=== PATIENT | male | born 1945 | race Caucasian/White ===

== ENCOUNTER 2018-11-19 19:14 | Inpatient (IN) | payer OTHER, MEDICARE ==
[~2018-11-19 19:14] MED LIST: INSULIN SLIDING SCALE (NOVOLOG) 1 VIAL SQ SCH
[2018-11-19 19:24] VITALS: BMI 32.3
--- NOTE | 2018-11-19 19:39 | PDOC ---
History of Present Illness - History of Present Illness Initial Comments: 11/19/18 19:53 The patient is a 72 year old male, with a significant past medical history of hypertension and NIDDM, who presents to the emergency department with slightly elevated blood sugar, intermittent abdominal pain, dizziness and shortness of breath. The patient states he woke up and his sugar was 133 which is elevated from his usual 100 in the mornings. He states his sugar was about 250 prior to ED arrival. He states he had an episode of abdominal discomfort earlier which has since resolved after about 3 bowel movements today. As per the son at bedside, the patient complaints of some shortness of breath earlier which the patient denies having now. The patient also reports intermittent dizziness with associated unsteady gait for about 6 months which he has seen a neurologist for twice and has yet to follow back since last visit. The patient denies chest pain, palpitations, and headache. The patient denies fever, chills, nausea, vomit, diarrhea and constipation. The patient denies dysuria, frequency, urgency and hematuria. PAST MEDICAL HISTORY: no significant history PAST SURGICAL HISTORY: no significant history FAMILY HISTORY: no pertinent history SOCIAL HISTORY: Pt lives with family and is employed. MEDICATIONS: reviewed ALLERGIES: As per nursing notes ROS General: No fevers or chills, no weakness, no weight loss HEENT: No change in vision. No sore throat,. No ear pain CardioVascular: No chest pain. Respiratory: (+) SOB (now resolved). No cough, or wheezing. Gastrointestinal: (+) abdominal discomfort (now resolved). no nausea, vomiting, diarrhea or constipation, No rectal bleeding Genitourinary: No dysuria, hematuria, or frequency Musculoskeletal: No joint or muscle pain or swelling Neurologic:(+) dizziness. No headache, vertigo, or loss of consciousness Psychiatric: nor depression Skin: No rashes or easy bruising Endocrine: (+) elevated blood sugars. no increased thirst or abnormal weight change Allergic: no skin or latex allergy All other systems reviewed and normal Physical Exam: General: Well-nourished well-developed individual, no acute distress HEENT: Throat: Normal, tonsils normal, no erythema or exudate Neck: Supple, no meningeal signs, no lymphadenopathy Eyes::Pupils equal reactive and round, extraocular motion intact Chest: Nontender to palpation Cardiac: (+) 2/6 systolic murmur. S1-S2 normal, regular rate and rhythm, no rubs or gallops Respiratory: Lungs clear to auscultation bilateral Abdomen: Soft, nondistended, normal bowel sounds, nontender to palpation diffusely Extremities: Warm, dry, no cyanosis, clubbing, or edema Skin: No rashes Neuro: Alert and oriented x3, nonfocal exam, grossly intact, normal gait Psych: Normal mood and affect Rectal: (+) dark stool in vault. no blood. no masses. no tenderness <Aaliyah Barclay - Last Filed: 11/19/18 20:32> - General History Source: Patient Exam Limitations: No Limitations - History of Present Illness Initial Comments: A portion of this note was documented by scribe services under my direction. I have reviewed the details of the note, within reason, and agree with the documentation with the following case summary and management plan written by me. Patient treated in the ED. Nursing notes are reviewed and incorporated into the medical decision-making. Vital signs reviewed. Assessment and plan: This is a 72-year-old male who comes in complaining of dizziness and some dyspnea. Patient also complained that he thought his sugar was high. Workup was initiated including CBC, comp, EKG, chest x-ray. Patient's EKG showed normal sinus rhythm with a right bundle branch block at a rate of [address]-T wave changes Patient's chest x-ray showed no acute pathology Patient's labs were unremarkable exception of a sugar of 351 and a hemoglobin of 8.8 Given patient's hemoglobin and sugar patient will be admitted to a observation bed for possible transfusion and the further evaluation. A head CT was not done as patient saw a neurologist within the last 6 months and had a head CT Discussed admission with hospitalist who requested the patient not be transfused at this time 11/19/18 20:53 11/19/18 20:55 <Donna Velez I - Last Filed: 11/19/18 20:56> - General Chief Complaint: Lightheaded Stated Complaint: dizziness Time Seen by Provider: 11/19/18 19:20 Past History <Aaliyah Barclay - Last Filed: 11/19/18 20:32> - Past Medical History Anemia: No Asthma: No Cancer: No Cardiac Disorders: Yes (AORTIC STENOSIS) CVA: No COPD: No CHF: No Dementia: No Diabetes: Yes GI Disorders: No Disorders: No HTN: Yes Hypercholesterolemia: Yes Liver Disease: No Seizures: No Thyroid Disease: No - Surgical History Abdominal Surgery: No Appendectomy: No Cardiac Surgery: No Cholecystectomy: No Lung Surgery: No Neurologic Surgery: No Orthopedic Surgery: Yes (LEFT & RIGHT KNEE ARTHROSCOPY,LEFT SHOULDER SX) - Suicide/Smoking/Psychosocial Hx Smoking Status: No Smoking History: Unknown if ever smoked Have you smoked in the past 12 months: No Number of Cigarettes Smoked Daily: 0 Information on smoking cessation initiated: No Hx Alcohol Use: Yes (RARE) Drug/Substance Use Hx: No Substance Use Type: None Hx Substance Use Treatment: No <Donna Velez I - Last Filed: 11/19/18 20:56> - Past Medical History Allergies/Adverse Reactions: Allergies Allergy/AdvReac Type Severity Reaction Status Date / Time No Known Allergies Allergy Verified 11/03/11 09:36 Home Medications: Ambulatory Orders Metformin HCl [Glucophage] 1,000 mg PO BID 11/03/11 Metoprolol Succinate [Toprol XL] 50 mg PO DAILY 11/03/11 Amlodipine Besylate 10 mg PO DAILY 10/09/15 Aspirin Coated [Ecotrin -] 325 mg PO DAILY 10/09/15 Atorvastatin Ca [Lipitor -] 20 mg PO DAILY 10/09/15 Glimepiride 2 mg PO DAILY 10/09/15 Losartan Potassium 50 mg PO DAILY 10/09/15 Oxycodone HCl 5 mg PO Q4H PRN #60 tablet 10/10/15 Triamterene/Hydrochlorothiazid [Triamterene-Hctz 37.5-25 mg Cp] 1 each PO DAILY 11/19/18 *Physical Exam - Vital Signs Last Vital Signs Temp Pulse Resp BP Pulse Ox 97.3 F L 90 16 102/56 L 96 11/19/18 19:19 11/19/18 19:19 11/19/18 19:19 11/19/18 19:19 11/19/18 19:19 <Aaliyah Barclay - Last Filed: 11/19/18 20:32> - Vital Signs Last Vital Signs Temp Pulse Resp BP Pulse Ox 97.3 F L 90 16 102/56 L 96 11/19/18 19:19 11/19/18 19:19 11/19/18 19:19 11/19/18 19:19 11/19/18 19:19 <Donna Velez I - Last Filed: 11/19/18 20:56> ED Treatment Course - LABORATORY CBC & Chemistry Diagram: 11/19/18 19:47 11/19/18 19:47 <Aaliyah Barclay - Last Filed: 11/19/18 20:32> - LABORATORY CBC & Chemistry Diagram: 11/19/18 19:47 11/19/18 19:47 <Donna Velez I - Last Filed: 11/19/18 20:56> *DC/Admit/Observation/Transfer - Attestations Scribe Attestion: 11/19/18 19:54 Documentation prepared by Aaliyah Barclay, acting as director global medical affairs for Donna Velez MD <Aaliyah Barclay - Last Filed: 11/19/18 20:32> - Discharge Dispostion Decision to Admit order: Yes <Donna Velez I - Last Filed: 11/19/18 20:56> Diagnosis at time of Disposition: Dizziness Anemia Qualifiers: Anemia type: unspecified type Qualified Code(s): D64.9 - Anemia, unspecified Dyspnea Qualifiers: Dyspnea type: unspecified Qualified Code(s): R06.00 - Dyspnea, unspecified - Discharge Dispostion Condition at time of disposition: Stable - Referrals Referrals: Sebastian Aguilar MD [Primary Care Provider] - - Patient Instructions - Post Discharge Activity
[2018-11-19 20:12] LABS: BASO % 0.3 % (0-2.0); EOS % 1.4 % (0-4.5); MEAN PLT VOLUME 9.3 fl (7.5-11.1); RBC 2.96 M/mm3 (4.00-5.60)
[2018-11-19 20:16] LABS: HEMOGLOBIN 8.8 GM/dl (11.7-16.9); LYMPH % 9.3 % (8-40); MCH 29.8 pg (25.7-33.7); MCHC 32.6 g/dl (32.0-35.9); MEAN CELL VOLUME 91.5 fl (80-96); MONO % 6.8 % (3.8-10.2); NEUT % 82.2 % (42.8-82.8); PLATELET COUNT 116 K/MM3 (134-434); RDW 13.6 % (11.9-15.9); WHITE BLOOD COUNT 10.4 K/mm3 (4.0-10.8)
[2018-11-19 20:21] LABS: ALBUMIN 2.9 g/dl (3.4-5.0); ALK PHOS 56 U/L (45-117); ANION GAP 10 MMOL/L (8-16); BILIRUBIN,TOTAL 1.3 mg/dl (0.2-1); BLOOD UREA NITROGEN 58 mg/dl (7-18); CALCIUM 8.9 mg/dl (8.5-10); CHLORIDE 103 mmol/L (98-107); CO2 24 mmol/L (21-32); CREATININE 1.2 mg/dl (0.55-1.3); POTASSIUM 5.5 mmol/L (3.5-5.1); SGOT/AST 41 U/L (15-37); SGPT/ALT 47 U/L (13-61); SODIUM 137 mmol/L (136-145); TOT PROT 5.5 g/dl (6.4-8.2)
[2018-11-19 20:23] LABS: GLUCOSE,RANDOM 351 mg/dl (74-106)
[2018-11-19 21:26] LABS: ACTIVATED PTT 21.8 SECONDS (25.2-36.5)
[2018-11-19 21:39] LABS: INR 1.47 (0.82-1.09); PROTHROMBIN TIME (PATIENT) 16.3 SEC (10.2-13.0)
--- NOTE | 2018-11-19 23:46 | HP ---
CHIEF COMPLAINT: dizziness PCP: Jeff HISTORY OF PRESENT ILLNESS: This is a 72 year old male with a past medical history of HTN, HLD, NIDDM who presented to the ED with abdominal discomfort and dizziness today as well as slightly elevated blood sugar. He reports that his abdominal pain has been intermittent and at home was relieved by BMs. He reports a total of 3 Dark BMs today which were progressively more loose. He reports normal brown BM yesterday. His son reported to the ED staff that his father was SOB earlier but patient denies any SOB. Pt reports that he has been having intermittent dizzines for the past 6 month and is being followed by a neurologist out of [place]. On exam pt reports feeling much better after vomiting and having BM. Pt ambulated to and from the bathroom just prior to my exam with no dizziness; however, he vomited approx 300cc dark brown/black liquid with clots as well as passed dark brown/black liquid BM. ER course was notable for: (1) Hgb 8.8 (2) K 5.5 (3) Glucose 351 Recent Travel: pt denies PAST MEDICAL HISTORY: HTN, HLD, heart murmur ?MV, NIDDM PAST SURGICAL HISTORY: left patella repair, right knee arthroscopy, left shoulder arthroscopy, left hip replacement Social History: Smoking: pt denies Alcohol: pt denies Drugs: pt denies Family History: mother age 83, dementia, h/o diverticulitis father age 65, pancreatic CA brother with leukemia sister with heart monitor for "fluttering" Allergies No Known Allergies Allergy (Verified 11/03/11 09:36) HOME MEDICATIONS: 3 Medication Instructions Recorded Metformin HCl [Glucophage] 1,000 mg PO BID 11/03/11 Metoprolol Succinate [Toprol XL] 50 mg PO DAILY 11/03/11 Amlodipine Besylate 10 mg PO DAILY 10/09/15 Aspirin Coated [Ecotrin -] 325 mg PO DAILY 10/09/15 Atorvastatin Ca [Lipitor -] 20 mg PO DAILY 10/09/15 Glimepiride 2 mg PO DAILY 10/09/15 Losartan Potassium 50 mg PO DAILY 10/09/15 Oxycodone HCl 5 mg PO Q4H PRN #60 tablet 10/10/15 Triamterene/Hydrochlorothiazid 1 each PO DAILY 11/19/18 [Triamterene-Hctz 37.5-25 mg Cp] REVIEW OF SYSTEMS CONSTITUTIONAL: Absent: fever, chills, diaphoresis, generalized weakness, malaise, loss of appetite, weight change HEENT: Absent: rhinorrhea, nasal congestion, throat pain, throat swelling, difficulty swallowing, mouth swelling, ear pain, eye pain, visual changes CARDIOVASCULAR: Absent: chest pain, syncope, palpitations, irregular heart rate, lightheadedness , peripheral edema RESPIRATORY: Present: shortness of breath Absent: cough, dyspnea with exertion, orthopnea, wheezing, stridor, hemoptysis GASTROINTESTINAL: Absent: abdominal distension, nausea, vomiting, diarrhea, constipation, melena, hematochezia GENITOURINARY: Present: abdominal pain Absent: dysuria, frequency, urgency, hesitancy, hematuria, flank pain, genital pain MUSCULOSKELETAL: Absent: myalgia, arthralgia, joint swelling, back pain, neck pain SKIN: Absent: rash, itching, pallor HEMATOLOGIC/IMMUNOLOGIC: Absent: easy bleeding, easy bruising, lymphadenopathy, frequent infections ENDOCRINE: Absent: unexplained weight gain, unexplained weight loss, heat intolerance, cold intolerance NEUROLOGIC: Present: dizziness Absent: headache, focal weakness or paresthesias, unsteady gait, seizure, mental status changes, bladder or bowel incontinence PSYCHIATRIC: Absent: anxiety, depression, suicidal or homicidal ideation, hallucinations. PHYSICAL EXAMINATION Vital Signs - 24 hr 3 11/19/18 11/19/18 11/19/18 19:19 21:30 21:45 Temperature 97.3 F L 97.8 F Pulse Rate 90 86 Pulse Rate [ 86 Radial] Respiratory 16 18 17 Rate Blood Pressure 102/56 L 113/48 L Blood Pressure 104/66 [Arm] O2 Sat by Pulse 96 95 98 Oximetry (%) GENERAL: Awake, alert, and fully oriented, in no acute distress. HEAD: Normal with no signs of trauma. EYES: Pupils equal, round and reactive to light, extraocular movements intact, sclera anicteric, conjunctiva clear. No lid lag. EARS, NOSE, THROAT: Ears normal, nares patent, oropharynx clear without exudates. Moist mucous membranes. NECK: Normal range of motion, supple without lymphadenopathy, JVD, or masses. LUNGS: Breath sounds equal, clear to auscultation bilaterally. No wheezes, and no crackles. No accessory muscle use. HEART: Regular rate and rhythm, normal S1 and S2 without rub or gallop. + 2/6 PATRICIA 2nd ICS LSB ABDOMEN: Soft, nontender, not distended, normoactive bowel sounds, no guarding, no rebound, no masses. No hepatomegaly or splenomegaly. MUSCULOSKELETAL: Normal range of motion at all joints. No bony deformities or tenderness. No CVA tenderness. UPPER EXTREMITIES: 2+ pulses, warm, well-perfused. No cyanosis. No clubbing. No peripheral edema. LOWER EXTREMITIES: 2+ pulses, warm, well-perfused. No calf tenderness. No peripheral edema. NEUROLOGICAL: Cranial nerves II-XII intact. Normal speech. Normal gait. PSYCHIATRIC: Cooperative. Good eye contact. Appropriate mood and affect. SKIN: Warm, dry, normal turgor, no rashes or lesions noted, normal capillary refill. Laboratory Results - last 24 hr 3 11/19/18 11/19/18 11/19/18 19:47 19:47 19:47 WBC 10.4 RBC 2.96 L Hgb 8.8 L Hct 27.0 L D MCV 91.5 MCH 29.8 MCHC 32.6 RDW 13.6 Plt Count 116 L D MPV 9.3 Absolute Neuts (auto) 8.6 Neutrophils % 82.2 Lymphocytes % 9.3 Monocytes % 6.8 Eosinophils % 1.4 Basophils % 0.3 PT with INR INR PTT (Actin FS) Sodium 137 Potassium 5.5 H Chloride 103 Carbon Dioxide 24 Anion Gap 10 BUN 58 H Creatinine 1.2 Creat Clearance w eGFR 59.35 Random Glucose 351 H* Calcium 8.9 Total Bilirubin 1.3 H AST 41 H ALT 47 Alkaline Phosphatase 56 Creatine Kinase Creatine Kinase Index CK-MB (CK-2) Troponin I 0.05 Total Protein 5.5 L Albumin 2.9 L Stool Occult Blood Blood Type Antibody Screen Crossmatch 3 11/19/18 11/19/18 11/19/18 19:47 20:32 20:34 WBC RBC Hgb Hct MCV MCH MCHC RDW Plt Count MPV Absolute Neuts (auto) Neutrophils % Lymphocytes % Monocytes % Eosinophils % Basophils % PT with INR Cancelled INR Cancelled PTT (Actin FS) Cancelled Sodium Potassium Chloride Carbon Dioxide Anion Gap BUN Creatinine Creat Clearance w eGFR Random Glucose Calcium Total Bilirubin AST ALT Alkaline Phosphatase Creatine Kinase 208 Creatine Kinase Index 2.1 CK-MB (CK-2) 4.5 H Troponin I Total Protein Albumin Stool Occult Blood Positive Blood Type Antibody Screen Crossmatch 3 11/19/18 11/19/18 11/19/18 20:36 20:58 20:58 WBC RBC Hgb Hct MCV MCH MCHC RDW Plt Count MPV Absolute Neuts (auto) Neutrophils % Lymphocytes % Monocytes % Eosinophils % Basophils % PT with INR 16.3 H INR 1.47 H D PTT (Actin FS) 21.8 L Sodium Potassium Chloride Carbon Dioxide Anion Gap BUN Creatinine Creat Clearance w eGFR Random Glucose Calcium Total Bilirubin AST ALT Alkaline Phosphatase Creatine Kinase Creatine Kinase Index CK-MB (CK-2) Troponin I Total Protein Albumin Stool Occult Blood Blood Type Cancelled O POSITIVE Antibody Screen Cancelled Negative Crossmatch See Detail ECG normal sinus rhythm RBBB vnt rate 77, QTC [address]/T wave changes ASSESSMENT/PLAN: 72yM with HTN, HLD, NIDDM presented to the ED with abdominal pain, dizziness and hyperglycemia now admitted for acute GI bleed. GI bleed-likely upper - transfer to [facility] as [facility] as bed available as there is no OR here on weekends for endoscopy - monitor on tele - transfuse 1uPRBC - CBC q6h - NPO except ice chips HTN - Hold toprol for now given SBP 100-110, start metoprolol 5mg q6h if persistently elevated HLD - resume lipitor when able to tolerate PO NIDDM - Hold home po meds - BGM and novolog sliding scale q6h while NPO DVT PPX - heparin deferred due to acute bleeding FEN - hold IVF for now as patient will be receiving blood, consider starting when blood complete - monitor BMP and replete, as indicated. K repeated, now 4.8 - NPO except ice chips Dispo: Pt currently requires inpatient management of his emergent condition. Visit type - Emergency Visit Emergency Visit: Yes ED Registration Date: 11/19/18 Care time: The patient presented to the Emergency Department on the above date and was hospitalized for further evaluation of their emergent condition. - New Patient This patient is new to me today: Yes Date on this admission: 11/19/18 - Critical Care Critical Care patient: No
[2018-11-19 23:51] LABS: BASO % 0.3 % (0-2.0); EOS % 0.7 % (0-4.5); HEMATOCRIT 24.7 % (35.4-49); HEMOGLOBIN 8.1 GM/dl (11.7-16.9); LYMPH % 11.8 % (8-40); MCH 30.1 pg (25.7-33.7); MCHC 32.8 g/dl (32.0-35.9); MEAN CELL VOLUME 91.7 fl (80-96); MEAN PLT VOLUME 8.9 fl (7.5-11.1); MONO % 6.5 % (3.8-10.2); NEUT % 80.7 % (42.8-82.8); PLATELET COUNT 100 K/MM3 (134-434); RBC 2.69 M/mm3 (4.00-5.60); RDW 13.9 % (11.9-15.9); WHITE BLOOD COUNT 8.9 K/mm3 (4.0-10.8)
[2018-11-19 23:58] LABS: ANION GAP 10 MMOL/L (8-16); BLOOD UREA NITROGEN 63 mg/dl (7-18); CALCIUM 8.9 mg/dl (8.5-10); CHLORIDE 104 mmol/L (98-107); CO2 24 mmol/L (21-32); CREATININE 1.2 mg/dl (0.55-1.3); POTASSIUM 4.8 mmol/L (3.5-5.1); SODIUM 138 mmol/L (136-145)
[2018-11-20] LABS: GLUCOSE,RANDOM 308 mg/dl (74-106)
[2018-11-20] MEDS ORDERED: INSULIN (NOVOLOG) ASPART 100 UNITS/ML 10ML VIAL SQ ONE
[2018-11-20] MEDS ORDERED: PANTOPRAZOLE SODIUM 40 MG VIAL IVPUSH ONE (00:38)
--- NOTE | 2018-11-20 05:46 | CONSULT ---
Consult Consult Specialty:: ICU Referred by:: Jamaal Reason for Consultation:: GI bleed - History of Present Illness Chief Complaint: abdominal pain, melena, coffee-ground emesis History of Present Illness: 72 yr old man with NIDDM, HTN, presented with diffuse abdominal pain associated with 5 episodes of dark stools between 12pm and entering the [facility] and had 2 episodes of coffee ground emesis in the ED. each BM filled the toilet bowl, initially BMs were hard but each subsequent was more liquid-like. He did not have breakfast and was belching with abdominal tightness, he then had a lunch consisting of meatball, spinach, and pasta containing soup after which the abdominal tightness increased and he urgently needed to go to the bathroom, abdominal pain improved with defecation. has been experiencing dizziness and unsteady gait for the past 8 months, was evaluated by nuerology and was recommended to get physical therapy but has not gone yet. In the past week denies fevers, new foods, new medications, changes in weight, dysuria, bruising, hematochezia, melena, headache. denies hx of UGI or LGI bleed. denies palpitations, shortness of breath, chest pain, nausea, changes in vision, current abdominal pain. 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 denies AK, had an echo in Aug 2018 and was told one of his valves was "closing." Had a colonoscopy years ago but was unable to recall the results or exact date. Surgx: left knee patellar repair and left shoulder surgery 2000, left hip replacement, right knee arthroplasty, "subcutaneous mass removal from under left clavicle" about 4 yrs ago, umbilical hernia repair 2015 PCP: Dr. Godwin @ [facility]: works as an staff accountant, lives with , denies ever smoking, ETOH or illicit drug use Fmhx: Mother with hx of diverticulitis, father diagnosed with pancreatic cancer age 65, brother with "a form of leukemia" - History Source History Provided By: Patient - Alcohol/Substance Use Hx Alcohol Use: Yes (RARE) - Smoking History Smoking history: Unknown if ever smoked Have you smoked in the past 12 months: No Aproximately how many cigarettes per day: 0 Home Medications - Allergies Allergies/Adverse Reactions: Allergies Allergy/AdvReac Type Severity Reaction Status Date / Time No Known Allergies Allergy Verified 11/03/11 09:36 - Home Medications Home Medications: Ambulatory Orders Metformin HCl [Glucophage] 1,000 mg PO BID 11/03/11 Metoprolol Succinate [Toprol XL] 50 mg PO DAILY 11/03/11 Amlodipine Besylate 10 mg PO DAILY 10/09/15 Aspirin Coated [Ecotrin -] 325 mg PO DAILY 10/09/15 Atorvastatin Ca [Lipitor -] 20 mg PO DAILY 10/09/15 Glimepiride 2 mg PO DAILY 10/09/15 Losartan Potassium 50 mg PO DAILY 10/09/15 Oxycodone HCl 5 mg PO Q4H PRN #60 tablet 10/10/15 Triamterene/Hydrochlorothiazid [Triamterene-Hctz 37.5-25 mg Cp] 1 each PO DAILY 11/19/18 Family Disease History - Family Disease History Family Disease History: CA: Father (pancreatic), Brother ("form of leukemia"), Other: Mother (diverticulitis) Review of Systems - Review of Systems Constitutional: denies: Fever, Lethargy, Loss of Appetite, Night Sweats, Unintentional Wgt. Loss Eyes: denies: Double Vision, Recent Change in Vision HENT: denies: Difficult Swallowing, Epistaxis, Nasal Congestion, Throat Pain, Ringing in Ears Cardiovascular: denies: Chest Pain, Edema, Palpitations, Shortness of Breath Respiratory: reports: Cough (had persistant dry cough from july to Aug that has since resolved) Gastrointestinal: reports: Abdominal Pain, Melena, Vomiting. denies: Rectal Bleeding Genitourinary: denies: Dysuria, Flank Pain Breasts: denies: Skin Changes Musculoskeletal: denies: Back Pain, Joint Swelling, Muscle Weakness Integumentary: denies: Bruising, Erythema, Rash Neurological: reports: Unsteady Gait. denies: Change in Speech, Confusion, Headache Endocrine: denies: Intolerance to Cold, Intolerance to Heat, Unexplained Weight Loss Hematology/Lymphatic: denies: Easily Bruised, Excessive Bleeding Physical Exam Vital Signs: Vital Signs Temperature 98.7 F 11/20/18 04:36 Pulse Rate 96 H 11/20/18 05:43 Respiratory Rate 21 H 11/20/18 05:43 Blood Pressure 143/72 11/20/18 05:43 O2 Sat by Pulse Oximetry (%) 94 L 11/20/18 04:36 Constitutional: Yes: No Distress, Calm Eyes: Yes: Conjunctiva Clear (conjunctival pallor), EOM Intact, PERRL HENT: Yes: Atraumatic, Normocephalic. No: Pharyngeal Erythema, Rhinnorhea Neck: Yes: Supple, Trachea Midline. No: Lymphadenopathy, Thyromegaly Cardiovascular: Yes: Regular Rate and Rhythm, Murmur, S1, S2. No: Bruit Respiratory: Yes: Regular, CTA Bilaterally. No: Cough, Wheezes Gastrointestinal: Yes: Normal Bowel Sounds, Soft, Distention (tympanic). No: Rectal Bleeding ...Rectal Exam: Yes: Guaiac Positive, Sphincter Tone Normal, Other (skin tag in 12o'clock position). No: Erythema, Inflammation Renal/: No: Bladder Distention, CVA Tenderness - Left, CVA Tenderness - Right Breast(s): No: Mass Musculoskeletal: No: Back Pain Extremities: No: Calf Tenderness, Erythema Edema: No Peripheral Pulses WNL: Yes Neurological: Yes: Alert, Oriented, Cran Nerves II-XII Intact, Other (facial symmetry, clear speech) ...Motor Strength: WNL Labs: CBC, BMP 11/19/18 23:00 11/19/18 23:00 Assessment/Plan 72 yr old with HTN, NIDDM presents with melena and coffee ground emesis likely due to GI bleed from aspirin use. GI - NPO for bowel rest and possible endoscopy/colonoscopy in the AM - Dr. Bui consulted for GI evaluation - received 1 unit of Prbc's in [place] - Protonix 40mg IV BID - trend CBC - IVF NS @100c/hr Hematology - normocytic anemia - d/t acute blood loss - thrombocytopenia - appears to be chronic, present in chart from 2016 and 2011 , continue to trend for acute changes CV - maintaining BP - transfuse as needed to maintain Hgb>7.0 - hold home oral ani-HTN medications Pulm - maintaining airway, pt has capacity and wants to be full code Endo - hx of NIDDM - hold home oral medications - BGMs/NISS q6hr while NPO FEN - Ns @100cc/hr - replete as needed, initially hyperkalemia that resolved in repeat BMP - NPO Neuro - hx of unsteady gait, unclear etiology, was evaluated by outpatient neurology - may need PT evaluation once stable Prophylaxis - medical AC contraindicated in setting of suspected GI bleed, SCD's for VTE - on protonix for GI Dispo: ICU level of care for GI bleed called son and left message on home number listed in chart as requested by patient. pt signed HCP form indicating Pedro Mccracken is to be his HCP with as alternate.
[2018-11-20] MEDS ORDERED: SODIUM CHLORIDE 1,000 ML IV SCH (06:00)
[2018-11-20 08:03] LABS: HEMATOCRIT 25.5 % (35.4-49); HEMOGLOBIN 8.5 GM/dL (11.7-16.9); MCH 30.7 pg (25.7-33.7); MCHC 33.4 g/dl (32.0-35.9); MEAN CELL VOLUME 91.8 fl (80-96); MEAN PLT VOLUME 8.5 fl (7.5-11.1); PLATELET COUNT 82 K/MM3 (134-434); RBC 2.78 M/mm3 (4.00-5.60); RDW 14.5 % (11.9-15.9)
[2018-11-20] MEDS ORDERED: PHYTONADIONE 10 MG/1 ML AMP SQ ONE (08:05)
[2018-11-20 08:11] LABS: MAGNESIUM 1.7 mg/dL (1.8-2.4); PHOSPHOROUS 3.8 mg/dL (2.5-4.9)
[2018-11-20 09:03] LABS: BLOOD UREA NITROGEN 68 mg/dL (7-18); CREATININE 1.3 mg/dL (0.55-1.3); GLUCOSE,RANDOM 165 mg/dL (74-106)
[2018-11-20 09:04] LABS: CALCIUM 8.8 mg/dL (8.5-10.1); CO2 20 mmol/L (21-32)
--- NOTE | 2018-11-20 09:04 | CON.GI ---
Consult Consult Specialty:: GI Referred by:: Hospitalist Reason for Consultation:: Coffee ground emesis - History of Present Illness Chief Complaint: Coffee ground emesis and melena History of Present Illness: 72M seen at [facility] for evaluation of dizziness. Was in bathroom at home sitting on toilet when he vomited dark material and had a black bowel movement. he had a total of two of these episodes and described 1 similar episode at [place]. noted to be anemic and transfused 1 U PRBC. Given protonix and transferred to [facility]. On ASA 325mg daily for years secondary to possible "old stroke". labs revealed INR 1.45 and platelets of 100, now 80. States being told of this in the past. States having had a liver biopsy multiple years ago and being told of fatty liver. Denies alcohol use. Has never had an upper endoscopy or colonoscopy. Noted increased LOPEZ yesterday while climbing stairs. Describes having a valvular heart probelm and his manager marketing works at [employer]. He cannot recall what valve is problematic. He has never had an upper endoscopy. Believes that he had a colonoscopy some years ago. There is no family history of colorectal cancer. No vomiting / melena as of yet this morning. His PMD is Dr. Aguilar. - History Source History Provided By: Patient, Medical Record Limitations to Obtaining History: No Limitations - Past Medical History Cardio/Vascular: Yes: HTN, Other (Valvular heart disease) Hepatobiliary: Yes: Other (Fatty Liver (states having had biopsy multiple years prior confirming this)) Heme/Onc: Yes: Thrombocytopenia (states having seen a child psychologist some years ago at [facility]) Endocrine: Yes: Diabetes Mellitus (DM II) - Past Surgical History Past Surgical History: Yes: Hernia Repair (Umbilical) Additional Surgical History: Left patella tendon repair, left shoulder surgery - Alcohol/Substance Use Hx Alcohol Use: Yes (RARE) - Smoking History Smoking history: Unknown if ever smoked Have you smoked in the past 12 months: No Aproximately how many cigarettes per day: 0 - Social History Usual Living Arrangement: With Spouse ADL: Independent Occupation: Heating And Ventilating Worker Place of : [facility] History of Recent Travel: No Home Medications - Allergies Allergies/Adverse Reactions: Allergies Allergy/AdvReac Type Severity Reaction Status Date / Time No Known Allergies Allergy Verified 11/03/11 09:36 - Home Medications Home Medications: Ambulatory Orders Metformin HCl [Glucophage] 1,000 mg PO BID 11/03/11 Metoprolol Succinate [Toprol XL] 50 mg PO DAILY 11/03/11 Amlodipine Besylate 10 mg PO DAILY 10/09/15 Aspirin Coated [Ecotrin -] 325 mg PO DAILY 10/09/15 Atorvastatin Ca [Lipitor -] 20 mg PO DAILY 10/09/15 Glimepiride 2 mg PO DAILY 10/09/15 Losartan Potassium 50 mg PO DAILY 10/09/15 Oxycodone HCl 5 mg PO Q4H PRN #60 tablet 10/10/15 Triamterene/Hydrochlorothiazid [Triamterene-Hctz 37.5-25 mg Cp] 1 each PO DAILY 11/19/18 Family Disease History - Family Disease History Family Disease History: CA: Father (: 65: pancreatic ca), Other: Mother (: 83: Alzheimer's dementia s/p fall), Brother (1 with leukemia), Sister (1 with heart problem), Son (2 healthy), Daughter (1 healthy) Other Family History: No family history of colorectal cancer Physical Exam-GI Vital Signs: Vital Signs Temperature 98.5 F 11/20/18 06:23 Pulse Rate 96 H 11/20/18 06:23 Respiratory Rate 22 H 11/20/18 06:23 Blood Pressure 127/64 11/20/18 06:23 O2 Sat by Pulse Oximetry (%) 94 L 11/20/18 06:20 Constitutional: Yes: Calm Eyes: No: Sclera Icterus Cardiovascular: Yes: Tachycardia, Murmur (2/6 systolic murmur at the RSB) Respiratory: Yes: CTA Bilaterally Gastrointestinal Inspection: Yes: Scars (periumbilical scar). No: Distention ...Auscultate: Yes: Normoactive Bowel Sounds ...Palpate: Yes: Soft. No: Hepatomegaly, Splenomegaly, Tenderness ...Percussion: No: Tympanitic ...Rectal Exam: Yes: Other (No external lesions, no masses, no blood/melena) Edema: No (No LE edema) Neurological: Yes: Alert Labs: CBC, BMP 11/20/18 07:25 INR, PTT INR 1.47 (0.82-1.09) H D 11/19/18 20:58 Problem List - Problems (1) Upper GI bleed Assessment/Plan: For further evaluation, discussed upper endoscopy to exclude intralum,inal pathology such as NSAID induced PUD, bleeding blood vessel, gastritis. Given thrombocytopenia, hypoalbuminemia, LFT abnormality, mild coagulopathy and known history of fatty liver disease, sequelae of portal hypertension such as varices/ portal gastropathy need to remain in the differential as well. i explained this to Mr. Mccracken and his family who were present at bedside. We discussed potential risks of the procedure like but not limited to bleeding, perforation requiring surgery to repair, infection sedation medication effects all of which could be potentially life threatening. Discussed the possible need for variceal banding as well. He has agreed to the procedure. For now: NPO except meds IV hydration' AXR ordered to evaluate for ileus in setting of hyperglycemia, abdominal US ordered to evaluate for splenomegaly Protonix given. continue as drip @ 8mg/hr Ordered Vitamin K 10mg SC x 1 and repeat coags ordered In setting of chronic thrombocytopenia, the use of daily full dose asa will need to be reevaluated Hematology consult placed EKG ordered and cardioplogy consult placed. h/o valvular heart disease. Need more information regarding valvular heart disease and cardiology consult placed Code(s): K92.2 - GASTROINTESTINAL HEMORRHAGE, UNSPECIFIED
[2018-11-20 09:26] LABS: ANION GAP 15 MMOL/L (8-16); CHLORIDE 108 mmol/L (98-107); POTASSIUM 4.4 mmol/L (3.5-5.1); SODIUM 143 mmol/L (136-145)
[2018-11-20] MEDS ORDERED: MUPIROCIN 2% TOPICAL OINTMENT FOR DECOLONIZATION NS SCH (10:00)
[2018-11-20] MEDS ORDERED: PANTOPRAZOLE SODIUM 40 MG VIAL IVPUSH SCH ×3 (10:00→18:00)
[2018-11-20] MEDS: PANTOPRAZOLE SODIUM 80 MG in SODIUM CHLORIDE 100 ML IVPB SCH ×2 (10:00→17:52)
[2018-11-20] MEDS ORDERED: PHYTONADIONE 10 MG/1 ML AMP ONE (10:00)
[2018-11-20] MEDS ORDERED: MAGNESIUM SULF 50% (8.12 MEQ/2 ML-1 GM VIAL) IVPB ONE (10:02)
--- NOTE | 2018-11-20 10:28 | PN ---
Physical Exam: SUBJECTIVE: Patient seen and examined in the icu. denies any abdominal pain, nausea or vomiting OBJECTIVE: symphony coverage for Dr. Aguilar Vital Signs Period Temp Pulse Resp BP Sys/Harden Pulse Ox Last 24 Hr 97.3 F-98.7 F 86-100 16-22 102-143/48-72 94-100 GENERAL: The patient is awake, alert, and fully oriented, in no acute distress. slightly pallorous HEAD: Normal with no signs of trauma. EYES: PERRL, extraocular movements intact, sclera anicteric, conjunctiva clear. No ptosis. ENT: Ears normal, nares patent, oropharynx clear without exudates, moist mucous membranes. NECK: Trachea midline, full range of motion, supple. LUNGS: Breath sounds equal, clear to auscultation bilaterally, no wheezes, no crackles, no accessory muscle use. HEART: Regular rate and rhythm ABDOMEN: Soft, nontender, nondistended, normoactive bowel sounds, no guarding, no rebound, no hepatosplenomegaly, no masses. EXTREMITIES: no edema. NEUROLOGICAL: Normal speech, gait not observed. PSYCH: Normal mood, normal affect. SKIN: Warm, dry, normal turgor, no rashes or lesions noted Laboratory Results - last 24 hr 11/19/18 11/19/18 11/19/18 19:47 19:47 19:47 WBC 10.4 RBC 2.96 L Hgb 8.8 L Hct 27.0 L D MCV 91.5 MCH 29.8 MCHC 32.6 RDW 13.6 Plt Count 116 L D MPV 9.3 Absolute Neuts (auto) 8.6 Neutrophils % 82.2 Lymphocytes % 9.3 Monocytes % 6.8 Eosinophils % 1.4 Basophils % 0.3 PT with INR INR PTT (Actin FS) Sodium 137 Potassium 5.5 H Chloride 103 Carbon Dioxide 24 Anion Gap 10 BUN 58 H Creatinine 1.2 Creat Clearance w eGFR 59.35 Random Glucose 351 H* Calcium 8.9 Phosphorus Magnesium Total Bilirubin 1.3 H AST 41 H ALT 47 Alkaline Phosphatase 56 Creatine Kinase Creatine Kinase Index CK-MB (CK-2) Troponin I 0.05 Total Protein 5.5 L Albumin 2.9 L Stool Occult Blood Blood Type Antibody Screen Crossmatch 04/05/19 04/05/19 04/05/19 19:47 20:32 20:34 WBC RBC Hgb Hct MCV MCH MCHC RDW Plt Count MPV Absolute Neuts (auto) Neutrophils % Lymphocytes % Monocytes % Eosinophils % Basophils % PT with INR Cancelled INR Cancelled PTT (Actin FS) Cancelled Sodium Potassium Chloride Carbon Dioxide Anion Gap BUN Creatinine Creat Clearance w eGFR Random Glucose Calcium Phosphorus Magnesium Total Bilirubin AST ALT Alkaline Phosphatase Creatine Kinase 208 Creatine Kinase Index 2.1 CK-MB (CK-2) 4.5 H Troponin I Total Protein Albumin Stool Occult Blood Positive Blood Type Antibody Screen Crossmatch 11/19/18 11/19/18 11/19/18 20:36 20:58 20:58 WBC RBC Hgb Hct MCV MCH MCHC RDW Plt Count MPV Absolute Neuts (auto) Neutrophils % Lymphocytes % Monocytes % Eosinophils % Basophils % PT with INR 16.3 H INR 1.47 H D PTT (Actin FS) 21.8 L Sodium Potassium Chloride Carbon Dioxide Anion Gap BUN Creatinine Creat Clearance w eGFR Random Glucose Calcium Phosphorus Magnesium Total Bilirubin AST ALT Alkaline Phosphatase Creatine Kinase Creatine Kinase Index CK-MB (CK-2) Troponin I Total Protein Albumin Stool Occult Blood Blood Type Cancelled O POSITIVE Antibody Screen Cancelled Negative Crossmatch See Detail See Detail 11/19/18 11/19/18 11/20/18 23:00 23:00 07:25 WBC 8.9 9.0 RBC 2.69 L 2.78 L Hgb 8.1 L 8.5 L Hct 24.7 L 25.5 L D MCV 91.7 91.8 MCH 30.1 30.7 MCHC 32.8 33.4 RDW 13.9 14.5 Plt Count 100 L 82 L D MPV 8.9 8.5 Absolute Neuts (auto) 7.2 Neutrophils % 80.7 Lymphocytes % 11.8 D Monocytes % 6.5 Eosinophils % 0.7 Basophils % 0.3 PT with INR INR PTT (Actin FS) Sodium 138 Potassium 4.8 Chloride 104 Carbon Dioxide 24 Anion Gap 10 BUN 63 H Creatinine 1.2 Creat Clearance w eGFR 59.35 Random Glucose 308 H* Calcium 8.9 Phosphorus Magnesium Total Bilirubin AST ALT Alkaline Phosphatase Creatine Kinase Creatine Kinase Index CK-MB (CK-2) Troponin I Total Protein Albumin Stool Occult Blood Blood Type Antibody Screen Crossmatch 11/20/18 11/20/18 07:25 07:25 WBC RBC Hgb Hct MCV MCH MCHC RDW Plt Count MPV Absolute Neuts (auto) Neutrophils % Lymphocytes % Monocytes % Eosinophils % Basophils % PT with INR INR PTT (Actin FS) Sodium 143 Potassium 4.4 Chloride 108 H Carbon Dioxide 20 L Anion Gap 15 BUN 68 H Creatinine 1.3 Creat Clearance w eGFR 54.11 Random Glucose 165 H Calcium 8.8 Phosphorus 3.8 Magnesium 1.7 L Total Bilirubin AST ALT Alkaline Phosphatase Creatine Kinase 114 Creatine Kinase Index CK-MB (CK-2) 3.39 Troponin I 0.06 H Cancelled Total Protein Albumin Stool Occult Blood Blood Type Antibody Screen Crossmatch Active Medications Generic Name Dose Route Start Last Admin Trade Name Freq PRN Reason Stop Dose Admin Chlorhexidine Gluconate 1 applic 11/20/18 22:00 Hibiclens For Decolonization - TP HS SHAN Sodium Chloride 1,000 mls @ 100 mls/hr 11/20/18 06:00 11/20/18 07:00 Normal Saline - IV 100 mls/hr ASDIR SHAN Administration Pantoprazole Sodium 80 mg/ 100 mls @ 10 mls/hr 11/20/18 07:30 11/20/18 10:00 Sodium Chloride IVPB 10 mls/hr Q10H SHAN Administration 8 MG/HR Insulin Aspart 1 vial 11/20/18 06:00 Novolog Vial Sliding Scale - SQ Q6H SHAN Protocol Mupirocin 1 applic 11/20/18 10:00 Bactroban Ointment (For Decolonization) - NS 11/25/18 09:59 BID SHAN ASSESSMENT/PLAN: Patient is a 72 year old male with a significant past medical history of hypertension, hyperlipidemia, diabetes. He presents to the ED on 11/19/18 with complaints of abdominal pain and feeling dizzy. He reported 3 episodes of loose dark stool today and one episode of approximately 300cc dark brown/black liquid emesis with clots and then with a dark brown/black liquid bowel movement. Problem list: hypertension hyperlipidemia diabetes Dizziness GI bleed Blood loss anemia GI: GI bleed/blood loss anemia Given 1 unit of prbc. hmg/hct low stable and unchanged from this morning on protonix drip trend cbc IV hydration and NPO For possible endoscopy today Heme: Acute blood anemia, in the setting of gi bleed. cbc being monitored, for endoscopy procedure today thrombocytpenia @ 82, platelets 90-100 on previous admissions On ASA 324mg therapy for many years per patient per his neurologist. Pulm: Toleraring room air, stable saturations Cardiology: Hypertension. controlled. Hyperlipidemia. on statin therapy-resume when can tolerate po hx of valvular heart disease: cardiology consulted, echo ordered. Endocrine: Diabetes. bgms q6 while NPO fen npo NS @ 100cc/hr monitor electrolytes prophy SCDS no a/c due to gi bleed Visit type - Emergency Visit Emergency Visit: Yes ED Registration Date: 11/19/18 Care time: The patient presented to the Emergency Department on the above date and was hospitalized for further evaluation of their emergent condition. - New Patient This patient is new to me today: No - Critical Care Critical Care patient: Yes Total Critical Care Time (in minutes): 30 Critical Care Statement: The care of this patient involved high complexity decision making to prevent further life threatening deterioration of the patient 's condition and/or to evaluate & treat vital organ system(s) failure or risk of failure.
[2018-11-20 11:06] LABS: INR 1.27 (0.83-1.09)
--- NOTE | 2018-11-20 11:27 | EKG ---
Test Reason : Blood Pressure : / mmHG Vent. Rate : 100 BPM Atrial Rate : 100 BPM P-R Int : 150 ms QRS Dur : 126 ms QT Int : 406 ms P-R-T Axes : 053 -18 035 degrees QTc Int : 523 ms NORMAL SINUS RHYTHM RIGHT BUNDLE BRANCH BLOCK ABNORMAL ECG WHEN COMPARED WITH ECG OF 19-NOV-2018 19:39, ST NOW DEPRESSED IN ANTERIOR LEADS QT HAS LENGTHENED Confirmed by BROOKE BOURNE, FABIO ([id number]) on 11/20/2018 11:26:51 AM Referred By: Bk ASCENCIO Confirmed By:FABIO COX MD
--- NOTE | 2018-11-20 11:38 | EKG ---
Test Reason : Blood Pressure : / mmHG Vent. Rate : 077 BPM Atrial Rate : 077 BPM P-R Int : 132 ms QRS Dur : 124 ms QT Int : 408 ms P-R-T Axes : 045 -05 017 degrees QTc Int : 461 ms NORMAL SINUS RHYTHM RIGHT BUNDLE BRANCH BLOCK ABNORMAL ECG NO PREVIOUS ECGS AVAILABLE Confirmed by BROOKE BOURNE, FABIO ([id number]) on 11/20/2018 11:38:38 AM Referred By: MD ZENG Confirmed By:FABIO COX MD
[2018-11-20] MEDS ORDERED: PT OWN MED DRAWER 7, Y5N ONE (12:05)
[2018-11-20 13:23] LABS: HEMATOCRIT 24.5 % (35.4-49); HEMOGLOBIN 8.4 GM/dL (11.7-16.9); MCH 31.3 pg (25.7-33.7); MCHC 34.2 g/dl (32.0-35.9); MEAN CELL VOLUME 91.5 fl (80-96); RBC 2.68 M/mm3 (4.00-5.60); WHITE BLOOD COUNT 9.2 K/mm3 (4.0-10.0)
[2018-11-20 13:24] LABS: MEAN PLT VOLUME 8.9 fl (7.5-11.1); PLATELET COUNT 81 K/MM3 (134-434); RDW 14.5 % (11.9-15.9)
[2018-11-20] MEDS: INSULIN SLIDING SCALE (NOVOLOG) 1 VIAL SQ SCH ×3 (13:42→18:15)
[2018-11-20 14:42] LABS: HEMATOCRIT 24.6 % (35.4-49); HEMOGLOBIN 8.2 GM/dL (11.7-16.9); MCH 30.7 pg (25.7-33.7); MCHC 33.6 g/dl (32.0-35.9); MEAN CELL VOLUME 91.4 fl (80-96); MEAN PLT VOLUME 8.7 fl (7.5-11.1); PLATELET COUNT 86 K/MM3 (134-434); RBC 2.69 M/mm3 (4.00-5.60); RDW 14.5 % (11.9-15.9); WHITE BLOOD COUNT 9.1 K/mm3 (4.0-10.0)
[2018-11-20] MEDS ORDERED: OCTREOTIDE ACETATE 50 MCG/1 ML - 1 ML VIAL IVPUSH ONE (16:52)
[2018-11-20] MEDS ORDERED: NADOLOL 20 MG TABLET (FP) PO SCH (17:00)
[2018-11-20] MEDS ORDERED: OCTREOTIDE ACETATE 1,200 MCG in DEXTROSE 5%-WATER - 488 ML IVPB SCH (17:00)
[2018-11-20] MEDS ORDERED: CEFTRIAXONE 1 GM in DEXTROSE 5%-WATER - 50 ML IVPB SCH (17:15)
[2018-11-20] MEDS ORDERED: cefTRIAXone SODIUM 1 GM VIAL ONE (17:21)
[2018-11-20] MEDS ORDERED: DEXTROSE 5%-WATER - 50 ML IVPB ONE (17:21)
--- NOTE | 2018-11-20 17:22 | PN ---
Progress Note (short form) - Note Progress Note: EGD complete. Report placed in procedural section of physical chart and will be scanned into [facility] Problem List - Problems (1) Upper GI bleed Code(s): K92.2 - GASTROINTESTINAL HEMORRHAGE, UNSPECIFIED
[2018-11-20 18:33] VITALS: BP 125/60; PULSE 84; TEMP 99
--- NOTE | 2018-11-20 19:06 | CON.CARD ---
Consult Consult Specialty:: cardiology Reason for Consultation:: dizziness; hematochezia - History of Present Illness History of Present Illness: This is a 72 year old male with a past medical history of HTN, HLD, NIDDM who presented to the ED with abdominal discomfort and dizziness today as well as slightly elevated blood sugar. He reports that his abdominal pain has been intermittent and at home was relieved by BMs. He reports a total of 3 Dark BMs today which were progressively more loose. He reports normal brown BM yesterday. His son reported to the ED staff that his father was SOB earlier but patient denies any SOB. Pt reports that he has been having intermittent dizzines for the past 6 month and is being followed by a neurologist out of [place]. On exam pt reports feeling much better after vomiting and having BM. Pt ambulated to and from the bathroom just prior to my exam with no dizziness; however, he vomited approx 300cc dark brown/black liquid with clots as well as passed dark brown/black liquid BM. - History Source History Provided By: Patient, Family Member, Medical Record Limitations to Obtaining History: Other (pt's provides history; pt is tired ) - Past Medical History Cardio/Vascular: Yes: HTN, Other (Valvular heart disease) Hepatobiliary: Yes: Other (Fatty Liver (states having had biopsy multiple years prior confirming this)) Endocrine: Yes: Diabetes Mellitus (DM II) - Past Surgical History Past Surgical History: Yes: Hernia Repair (Umbilical) Additional Surgical History: Left patella tendon repair, left shoulder surgery - Alcohol/Substance Use Hx Alcohol Use: Yes (RARE) - Smoking History Smoking history: Unknown if ever smoked Have you smoked in the past 12 months: No Aproximately how many cigarettes per day: 0 - Social History Usual Living Arrangement: With Spouse ADL: Independent Occupation: [employer] History of Recent Travel: No Home Medications - Allergies Allergies/Adverse Reactions: Allergies Allergy/AdvReac Type Severity Reaction Status Date / Time No Known Allergies Allergy Verified 11/03/11 09:36 - Home Medications Home Medications: Ambulatory Orders Metformin HCl [Glucophage] 1,000 mg PO BID 11/03/11 Metoprolol Succinate [Toprol XL] 50 mg PO DAILY 11/03/11 Amlodipine Besylate 10 mg PO DAILY 10/09/15 Aspirin Coated [Ecotrin -] 325 mg PO DAILY 10/09/15 Atorvastatin Ca [Lipitor -] 20 mg PO DAILY 10/09/15 Glimepiride 2 mg PO DAILY 10/09/15 Losartan Potassium 50 mg PO DAILY 10/09/15 Oxycodone HCl 5 mg PO Q4H PRN #60 tablet 10/10/15 Triamterene/Hydrochlorothiazid [Triamterene-Hctz 37.5-25 mg Cp] 1 each PO DAILY 11/19/18 Family Disease History - Family Disease History Family Disease History: CA: Father (: 65: pancreatic ca), Other: Mother (: 83: Alzheimer's dementia s/p fall), Brother (1 with leukemia), Sister (1 with heart problem), Son (2 healthy), Daughter (1 healthy) Other Family History: No family history of colorectal cancer Vital Signs: Vital Signs Temperature 99 F 11/20/18 18:00 Pulse Rate 84 11/20/18 18:00 Respiratory Rate 21 H 11/20/18 18:00 Blood Pressure 125/60 11/20/18 18:00 O2 Sat by Pulse Oximetry (%) 94 L 11/20/18 10:00 - Other Data Labs, Other Data: CBC, BMP 11/20/18 14:30 11/20/18 07:25 INR, PTT INR 1.27 (0.83-1.09) H 11/20/18 10:29 Troponin, BNP 11/19/18 11/20/18 11/20/18 19:47 07:25 07:25 Troponin I 0.05 0.06 H Cancelled Troponin, BNP 11/19/18 11/20/18 11/20/18 19:47 07:25 07:25 Troponin I 0.05 0.06 H Cancelled Problem List - Problems (1) Gastric varices Assessment/Plan: On Nadolol. For transer to [facility] for further evaluation. Code(s): I86.4 - GASTRIC VARICES (2) Anemia Code(s): D64.9 - ANEMIA, UNSPECIFIED Qualifiers: Anemia type: unspecified type Qualified Code(s): D64.9 - Anemia, unspecified (3) Dizziness Code(s): R42 - DIZZINESS AND GIDDINESS (4) Aortic stenosis Assessment/Plan: f/u ECHO for LVEF, valve status, chamber sizes. Code(s): I35.0 - NONRHEUMATIC AORTIC (VALVE) STENOSIS
--- NOTE | 2018-11-20 20:06 | CONSULT ---
Consult Consult Specialty:: Hematology Referred by:: Dr. So Reason for Consultation:: Thrombocytopenia - History of Present Illness Chief Complaint: Abdominal pain History of Present Illness: 72M with NIDDM, HTN, and reported hx of fatty liver disease presented with diffuse abdominal pain , dark stools and coffee grounds emesis. Hematology consulted for thrombocytopenia. Plt count 116 on presentation yesterday, 80s today. Also with normocytic anemia. WBC normal. Mildly prolonged PT with normal PTT. Pt reports that hes had thrombocytopenia for years and has seen a [employer] in the past. Not aware of cause. Does not think it was ITP. Never had BMbx. Remembers that he has an enlarged spleen and has been told that he has cirrhosis. The only available prior plt count is 109 in 09/2015. Denies prior hx of bleeding, night sweats, fevers, etoh use. Pt is on aspirin 325 mg for ?hx CVA. S/p EGD this afternoon with report pending. - Past Medical History Cardio/Vascular: Yes: HTN, Other (Valvular heart disease) Hepatobiliary: Yes: Other (Fatty Liver (states having had biopsy multiple years prior confirming this)) Endocrine: Yes: Diabetes Mellitus (DM II) - Past Surgical History Past Surgical History: Yes: Hernia Repair (Umbilical) Additional Surgical History: Left patella tendon repair, left shoulder surgery - Alcohol/Substance Use Hx Alcohol Use: Yes (RARE) - Smoking History Smoking history: Unknown if ever smoked Have you smoked in the past 12 months: No Aproximately how many cigarettes per day: 0 - Social History Usual Living Arrangement: With Spouse ADL: Independent Occupation: [employer] History of Recent Travel: No Home Medications - Allergies Allergies/Adverse Reactions: Allergies Allergy/AdvReac Type Severity Reaction Status Date / Time No Known Allergies Allergy Verified 11/03/11 09:36 - Home Medications Home Medications: Ambulatory Orders Metformin HCl [Glucophage] 1,000 mg PO BID 11/03/11 Metoprolol Succinate [Toprol XL] 50 mg PO DAILY 11/03/11 Amlodipine Besylate 10 mg PO DAILY 10/09/15 Aspirin Coated [Ecotrin -] 325 mg PO DAILY 10/09/15 Atorvastatin Ca [Lipitor -] 20 mg PO DAILY 10/09/15 Glimepiride 2 mg PO DAILY 10/09/15 Losartan Potassium 50 mg PO DAILY 10/09/15 Oxycodone HCl 5 mg PO Q4H PRN #60 tablet 10/10/15 Triamterene/Hydrochlorothiazid [Triamterene-Hctz 37.5-25 mg Cp] 1 each PO DAILY 11/19/18 Family Disease History - Family Disease History Family Disease History: CA: Father (: 65: pancreatic ca), Other: Mother (: 83: Alzheimer's dementia s/p fall), Brother (1 with leukemia), Sister (1 with heart problem), Son (2 healthy), Daughter (1 healthy) Other Family History: No family history of colorectal cancer Review of Systems - Review of Systems Constitutional: reports: No Symptoms HENT: reports: No Symptoms Cardiovascular: reports: No Symptoms Respiratory: reports: No Symptoms Gastrointestinal: reports: Abdominal Pain, Melena, Vomiting Blood Genitourinary: reports: No Symptoms Physical Exam Vital Signs: Vital Signs Temperature 99 F 11/20/18 18:00 Pulse Rate 84 11/20/18 18:00 Respiratory Rate 21 H 11/20/18 18:00 Blood Pressure 125/60 11/20/18 18:00 O2 Sat by Pulse Oximetry (%) 94 L 11/20/18 10:00 Constitutional: Yes: Well Nourished, Calm Eyes: Yes: WNL, Conjunctiva Clear Cardiovascular: Yes: WNL, Regular Rate and Rhythm Respiratory: Yes: Regular, CTA Bilaterally Gastrointestinal: Yes: Normal Bowel Sounds, Soft, Distention Edema: No Labs: CBC, BMP 11/20/18 14:30 11/20/18 07:25 Assessment/Plan 72M with NIDDM, HTN, and reported hx of fatty liver disease (?cirrhosis) admitted with suspected UGIB. ASA 325 mg held. EGD report to be scanned. Given history, suspect that thrombocytopenia is 2/2 liver disease. Anemia is probably due to acute blood loss. Peripheral smear unremarkable, no platelet clumps. Please check iron studies, b12, folate, retics, HIV, HBV, HCV. Would order abdominal sono to eval for cirrhosis, splenomegaly. Will follow.
[2018-11-20] MEDS ORDERED: CHLORHEXIDINE GLUCONATE 4% CLEANSER FOR DECOLONIZATION TP SCH (22:00)
--- NOTE | 2018-11-20 22:33 | DS ---
Physical Exam: SUBJECTIVE: Patient seen and examined OBJECTIVE: Vital Signs Period Temp Pulse Resp BP Sys/Harden Pulse Ox Last 24 Hr 98 F-99 F 84-104 15-22 103-144/49-72 94-100 PHYSICAL EXAM GENERAL: The patient is awake, alert, and fully oriented, in no acute distress. HEAD: Normal with no signs of trauma. EYES: PERRL, extraocular movements intact, sclera anicteric, conjunctiva clear. ENT: Ears normal, nares patent, oropharynx clear without exudates, moist mucous membranes. NECK: Trachea midline, full range of motion, supple. LUNGS: Breath sounds equal, clear to auscultation bilaterally, no wheezes, no crackles, no accessory muscle use. HEART: Regular rate and rhythm, S1, S2 without murmur, rub or gallop. ABDOMEN: Soft, nontender, nondistended, normoactive bowel sounds, no guarding, no rebound, no hepatosplenomegaly, no masses. EXTREMITIES: 2+ pulses, warm, well-perfused, no edema. NEUROLOGICAL: Cranial nerves II through XII grossly intact. Normal speech, gait not observed. PSYCH: Normal mood, normal affect. SKIN: Warm, dry, normal turgor, no rashes or lesions noted. LABS Laboratory Results - last 24 hr 11/19/18 11/19/18 11/19/18 20:58 23:00 23:00 WBC 8.9 Corrected WBC (auto) RBC 2.69 L Hgb 8.1 L Hct 24.7 L MCV 91.7 MCH 30.1 MCHC 32.8 RDW 13.9 Plt Count 100 L MPV 8.9 Absolute Neuts (auto) 7.2 Neutrophils % 80.7 Lymphocytes % 11.8 D Monocytes % 6.5 Eosinophils % 0.7 Basophils % 0.3 PT with INR INR Sodium 138 Potassium 4.8 Chloride 104 Carbon Dioxide 24 Anion Gap 10 BUN 63 H Creatinine 1.2 Creat Clearance w eGFR 59.35 POC Glucometer Random Glucose 308 H* Calcium 8.9 Phosphorus Magnesium Creatine Kinase CK-MB (CK-2) Troponin I Blood Type O POSITIVE Antibody Screen Negative Crossmatch See Detail 11/20/18 11/20/18 11/20/18 07:25 07:25 07:25 WBC 9.0 Corrected WBC (auto) RBC 2.78 L Hgb 8.5 L Hct 25.5 L D MCV 91.8 MCH 30.7 MCHC 33.4 RDW 14.5 Plt Count 82 L D MPV 8.5 Absolute Neuts (auto) Neutrophils % Lymphocytes % Monocytes % Eosinophils % Basophils % PT with INR INR Sodium 143 Potassium 4.4 Chloride 108 H Carbon Dioxide 20 L Anion Gap 15 BUN 68 H Creatinine 1.3 Creat Clearance w eGFR 54.11 POC Glucometer Random Glucose 165 H Calcium 8.8 Phosphorus 3.8 Magnesium 1.7 L Creatine Kinase 114 CK-MB (CK-2) 3.39 Troponin I 0.06 H Cancelled Blood Type Antibody Screen Crossmatch 11/20/18 11/20/18 11/20/18 10:29 12:30 12:39 WBC 9.2 Corrected WBC (auto) 9.20 RBC 2.68 L Hgb 8.4 L Hct 24.5 L MCV 91.5 MCH 31.3 MCHC 34.2 RDW 14.5 Plt Count 81 L MPV 8.9 Absolute Neuts (auto) Neutrophils % Lymphocytes % Monocytes % Eosinophils % Basophils % PT with INR 15.00 H INR 1.27 H Sodium Potassium Chloride Carbon Dioxide Anion Gap BUN Creatinine Creat Clearance w eGFR POC Glucometer 181 Random Glucose Calcium Phosphorus Magnesium Creatine Kinase CK-MB (CK-2) Troponin I Blood Type Antibody Screen Crossmatch 11/20/18 11/20/18 14:30 18:12 WBC 9.1 Corrected WBC (auto) RBC 2.69 L Hgb 8.2 L Hct 24.6 L MCV 91.4 MCH 30.7 MCHC 33.6 RDW 14.5 Plt Count 86 L MPV 8.7 Absolute Neuts (auto) Neutrophils % Lymphocytes % Monocytes % Eosinophils % Basophils % PT with INR INR Sodium Potassium Chloride Carbon Dioxide Anion Gap BUN Creatinine Creat Clearance w eGFR POC Glucometer 181 Random Glucose Calcium Phosphorus Magnesium Creatine Kinase CK-MB (CK-2) Troponin I Blood Type Antibody Screen Crossmatch HOSPITAL COURSE: Date of Admission:11/19/18 Date of Discharge: 11/20/18 Discharge Summary Reason For Visit: DIZZINESS/ ANEMIA Condition: Stable - Instructions Disposition: TRANSFER ACUTE CARE/OTHER HOSP - Home Medications Comprehensive Discharge Medication List: Ambulatory Orders Metformin HCl [Glucophage] 1,000 mg PO BID 11/03/11 Metoprolol Succinate [Toprol XL] 50 mg PO DAILY 11/03/11 Amlodipine Besylate 10 mg PO DAILY 10/09/15 Aspirin Coated [Ecotrin -] 325 mg PO DAILY 10/09/15 Atorvastatin Ca [Lipitor -] 20 mg PO DAILY 10/09/15 Glimepiride 2 mg PO DAILY 10/09/15 Losartan Potassium 50 mg PO DAILY 10/09/15 Oxycodone HCl 5 mg PO Q4H PRN #60 tablet 10/10/15 Triamterene/Hydrochlorothiazid [Triamterene-Hctz 37.5-25 mg Cp] 1 each PO DAILY 11/19/18
== END 2018-11-20 20:44 | disposition short-term general hospital (02) | DRG 378 ==
LOC: FER 19:14 → OBSVTOIN 21:11 → FM/S 21:11 → JICU 11-20 05:34
PROVIDERS: ADMIT Internal Medicine; ATTEND Nurse Practitioner Family
PROC: 0DJ08ZZ Inspection of Upper Intestinal Tract, Via Natural or Artificial Opening Endoscopic (ICD-10-PCS; 2018-11-20)
PROC: 30233N1 Transfusion of Nonautologous Red Blood Cells into Peripheral Vein, Percutaneous Approach (ICD-10-PCS; principal; 2018-11-20 15:54)
DX: K25.4 Chronic or unspecified gastric ulcer with hemorrhage (principal); D62 Acute posthemorrhagic anemia; I10 Essential (primary) hypertension; E78.5 Hyperlipidemia, unspecified; E11.9 Type 2 diabetes mellitus without complications; D69.6 Thrombocytopenia, unspecified; K76.0 Fatty (change of) liver, not elsewhere classified; I86.4 Gastric varices
CPT/HCPCS: 36415; 36430; 36511; 71045-TC-FY; 74019-TC-FY; 76700-TC; 80048; 80053; 82272; 82550; 82553; 82962; 83735; 84100; 84484; 85025; 85027; 85610; 85730; 86850; 86900; 86901; 86922; 93005; 93010; 99283-25; J7030; P9038; P9058

== ENCOUNTER 2019-04-01 07:57 | Day surgery (SDC) | payer OTHER, MEDICARE ==
[2019-03-31 15:47] VITALS: BMI 31.4
[2019-04-01 10:24] VITALS: TEMP 98.3
[2019-04-01 12:09] VITALS: BP 141/68; PULSE 63
--- NOTE | 2019-04-04 18:05 | PATH ---
Surgical Pathology Report Patient Name: SEBLE REINOSO [facility]. Rec. #: [id number] /Age/Gender: 1945 (Age: 73) / M Account: [id number] Location: U-ENDOSCOPY Taken: 04/01/2019 Received: 04/01/2019 Reported: 04/04/2019 Physicians: Gina Palma M.D. Specimen(s) Received A: PROXIMAL TRANSVERSE AND RIGHT COLON POLYP B: CECUM POLYP C: SIGMOID POLYP Clinical History Assess the status of varices, colon cancer screening Postoperative diagnosis: Portal gastropathy, colon polyps Final Diagnosis A. PROXIMAL TRANSVERSE AND RIGHT COLON POLYPS, BIOPSY AND POLYPECTOMY: TUBULAR ADENOMA(S). B. CECUM, POLYP, BIOPSY: TUBULAR ADENOMA. C. SIGMOID COLON, POLYP, BIOPSY: HYPERPLASTIC POLYP. Electronically Signed Andreina Restrepo M.D. Gross Description A. Received in formalin labeled "proximal transverse and right colon polyps biopsy," is a 0.8 x 0.7 x 0.1 cm aggregate of saravia soft tissue fragments. The formalin is filtered and the specimen is entirely submitted in one cassette. B. Received in formalin, labeled "cecal polyp biopsy" is a saravia, irregular portion of soft tissue measuring 0.3 cm. in greatest dimension. The specimen is submitted in toto in one cassette. C. Received in formalin, labeled "sigmoid polyp biopsy" are 3 saravia, irregular portions of soft tissue ranging from 0.2-0.3 cm. in greatest dimension. The specimens are submitted in toto in one cassette. 04/01/2019 saudi04/01/2019
== END 2019-04-01 11:15 | disposition home or self-care (01) ==
LOC: JASU-ENDO 07:57
PROVIDERS: ATTEND Internal Medicine Gastroenterology
PROC: 0DBK8ZX Excision of Ascending Colon, Via Natural or Artificial Opening Endoscopic, Diagnostic (ICD-10-PCS; 2019-04-01)
PROC: 0DBN8ZX Excision of Sigmoid Colon, Via Natural or Artificial Opening Endoscopic, Diagnostic (ICD-10-PCS; 2019-04-01)
PROC: 0DBH8ZX Excision of Cecum, Via Natural or Artificial Opening Endoscopic, Diagnostic (ICD-10-PCS; 2019-04-01)
PROC: 0DJ08ZZ Inspection of Upper Intestinal Tract, Via Natural or Artificial Opening Endoscopic (ICD-10-PCS; 2019-04-01)
PROC: 0DBL8ZX Excision of Transverse Colon, Via Natural or Artificial Opening Endoscopic, Diagnostic (ICD-10-PCS; principal; 2019-04-01 08:30)
DX: Z12.11 Encounter for screening for malignant neoplasm of colon (principal); D12.2 Benign neoplasm of ascending colon; D12.0 Benign neoplasm of cecum; D12.5 Benign neoplasm of sigmoid colon; D12.3 Benign neoplasm of transverse colon; K76.6 Portal hypertension; K31.89 Other diseases of stomach and duodenum; E11.9 Type 2 diabetes mellitus without complications; Z79.84 Long term (current) use of oral hypoglycemic drugs
CPT/HCPCS: 88305-TC